=== PATIENT | male | born 1995 | race American Indian/Alaskan Native ===

== ENCOUNTER 2020-05-17 11:31 | Emergency (ER) | payer BC ==
[2020-05-17] MEDS ORDERED: Fentanyl 100 MCG/2 ML VIAL ONE (12:01)
[2020-05-17] MEDS ORDERED: Ondansetron ODT 4 MG TAB ONE (12:02)
== END 2020-05-17 12:22 | disposition home or self-care (01) ==
LOC: ERS 11:31
DX: N48.89 Other specified disorders of penis (principal); N47.2 Paraphimosis
CPT/HCPCS: 96372; 99283; J3010; Q0162